=== PATIENT | male | born 1990 | race Caucasian/White ===

== ENCOUNTER 2019-04-06 13:40 | Emergency (ER) | payer OTHER ==
[~2019-04-06] VITALS: Ht 182.9 cm; Wt 115.3 kg
[2019-04-06 14:02] VITALS: BP 137/94
== END 2019-04-06 14:44 | disposition home or self-care (01) ==
LOC: ED 14:30
DX: H66.001 Acute suppurative otitis media without spontaneous rupture of ear drum, right ear (principal); R05 Cough
CPT/HCPCS: 93005; 99283